=== PATIENT | male | born 1965 | race Two or more races ===

== ENCOUNTER → 2019-02-02 | Day surgery (SDC) | payer OTHER ==
[~2019-02-02] MED LIST: IV RINGERS,LACTATED 1000ML 1,000 ML IV SCH; LIDOCAINE 1% PF 2 ML VIAL. ONE; PROPOFOL 40 ML IV ONE; TERB250T11 PO
[2019-02-02 09:17] VITALS: BP 115/58
--- NOTE | 2019-02-02 21:50 | CONS ---
DATE OF CONSULTATION: 02/02/2019 REFERRING PHYSICIAN: Dr. David Vieira. REASON FOR CONSULTATION: Colorectal screening. HISTORY OF PRESENT ILLNESS: A 53-year-old gentleman with past medical history noncontributory is seen in further evaluation for screening colonoscopy. Bowel habits are regular without diarrhea or constipation. There has been no melena and/or hematochezia. Weight and appetite are stable. Family history is unrevealing for colon polyps or colon cancer. He has not undergone previous screening studies. PAST MEDICAL HISTORY: Noncontributory. ALLERGIES: None. MEDICATIONS: Include terbinafine 250 mg daily. SOCIAL HISTORY: Does not drink or smoke. FAMILY HISTORY: Noncontributory for colon cancer. REVIEW OF SYSTEMS: Per records. PHYSICAL EXAMINATION: VITAL SIGNS: Temperature is 97.0, pulse 60, respirations 20. HEENT: Normocephalic and atraumatic. Pupils and extraocular muscles are not tested. Sclerae anicteric. NECK: Supple. LUNGS: Clear. CARDIOVASCULAR: Reveals S1, S2 without S3, S4 or appreciable murmur. ABDOMEN: Reveals soft abdomen. Normoactive bowel sounds without appreciable hepatosplenomegaly. EXTREMITIES: No cyanosis, clubbing, or edema. IMPRESSION: Colorectal screening is warranted at this time. Risks and benefits of procedure including risk of hemorrhage and perforation were discussed with the patient and family and he is willing to proceed. I would like to thank Dr. Vieira for allowing us to consult and participate in this patient's care. WALE LACKEY MD DR: ANA PAULA/marlon JOB#: [id number] / [id number] DAVID Newton MD
--- NOTE | 2019-02-05 14:09 | PATHOLOGY ---
[facility] Accession Number: [id number] . 01 Material submitted: . CECAL POLYP . 01 Clinical history: . Screening . 02 Diagnosis: Colon biopsy, cecal polyp: - Tubular adenoma. (JPM:jose; 02/05/2019) QMS/02/05/2019 . 02 Comment: There is no high-grade dysplasia or evidence of malignancy. (JPM:jose; 02/05/2019) . 02 Electronically signed: . Matty Artis MD, Pathologist NPI- [id number] . 01 Gross description: . Received in formalin labeled "Stew, Henry, cecal polyp," is a single segment of suh soft tissue measuring 0.4 cm in maximum dimension. The specimen is entirely submitted in cassette A1. (TSD; 02/02/2019) TOB/TOB . 02 Pathologist provided ICD-10: D12.0 . 02 CPT . 784668 Specimen Comment: A courtesy copy of this report has been sent to Specimen Comment: [phone], . Specimen Comment: Report sent to / DR RIVERA Specimen Comment: A duplicate report has been generated due to demographic updates. Performed at: 01 [facility] [address], [place] [id number] MD Jovany Villeda MD Phone: [phone] Performed at: 02 [facility] [address] [place], [place] [id number] MD Matty Artis MD Phone: [phone]
== END | disposition home or self-care (01) ==
LOC: ENDOS 07:20
PROVIDERS: ATTEND Internal Medicine Gastroenterology
DX: Z12.11 Encounter for screening for malignant neoplasm of colon (principal); D12.0 Benign neoplasm of cecum; K64.0 First degree hemorrhoids; Z79.899 Other long term (current) drug therapy
CPT/HCPCS: 45380; 88305; J2704

== ENCOUNTER → 2020-02-06 | Day surgery (SDC) | payer OTHER ==
[~2020-02-06] MED LIST changes: +CRESTOR5 MG PO; +IV RINGERS,LACTATED 1000ML 1,000 ML IV ONE; -IV RINGERS,LACTATED 1000ML 1,000 ML IV SCH; -LIDOCAINE 1% PF 2 ML VIAL. ONE; +PANT40TA77 PO; +PROPOFOL 20 ML IV ONE; -PROPOFOL 40 ML IV ONE
[2020-02-06 08:36] VITALS: BP 134/75
== END | disposition home or self-care (01) ==
LOC: ENDOS 07:28
PROVIDERS: ATTEND Internal Medicine Gastroenterology
DX: R13.10 Dysphagia, unspecified (principal); K22.2 Esophageal obstruction; K56.699 Other intestinal obstruction unspecified as to partial versus complete obstruction; K29.50 Unspecified chronic gastritis without bleeding; K21.9 Gastro-esophageal reflux disease without esophagitis; E78.00 Pure hypercholesterolemia, unspecified; Z86.010 Personal history of colon polyps; Z80.3 Family history of malignant neoplasm of breast; Z83.3 Family history of diabetes mellitus; Z82.3 Family history of stroke; Z79.899 Other long term (current) drug therapy
CPT/HCPCS: 43235; 43450; J2704

== ENCOUNTER → 2020-09-25 | Outpatient (CLI) | payer OTHER ==
[2020-02-06 08:36] VITALS: BP 134/75
[~2020-09-25] MED LIST changes: -IV RINGERS,LACTATED 1000ML 1,000 ML IV ONE; -PROPOFOL 20 ML IV ONE; -TERB250T11 PO; +TERB250T84 PO
--- NOTE | 2020-09-25 16:14 | KCIC ---
EXAM: Lumbar spine, 5 views. HISTORY: Pain. COMPARISON: None. FINDINGS: 5 views of the lumbar spine are obtained. There is grade 1 anterolisthesis of L4 on L5. There is suspected pars defects at this level. There is minimal retrolisthesis of L4 and L5. There is multilevel endplate remodeling with disc space narrowing and osteophytosis at multiple levels. There is facet arthropathy predominantly at the lumbosacral junction. IMPRESSION: 1. Multilevel degenerative change involving the lumbar and lower thoracic spine, described above. 2. Grade 1 anterolisthesis with suspected pars defects at L5-S1. Electronically signed by: Rosalind Wynn MD (09/25/2020 4:11 PM) [id number]
== END ==
LOC: KCIC 15:35
PROVIDERS: ATTEND Family Medicine
DX: M47.815 Spondylosis without myelopathy or radiculopathy, thoracolumbar region (principal); M43.17 Spondylolisthesis, lumbosacral region; M79.604 Pain in right leg
CPT/HCPCS: 72110

== ENCOUNTER 2020-09-27 17:04 | Emergency (ER) | payer OTHER ==
[~2020-09-27] VITALS: Ht 165.1 cm; Wt 90.0 kg
[2020-09-27 21:12] VITALS: BP 143/84
== END 2020-09-27 21:30 | disposition left against medical advice (07) ==
LOC: ER 17:04
DX: M25.561 Pain in right knee (principal); Z53.21 Procedure and treatment not carried out due to patient leaving prior to being seen by health care provider

== ENCOUNTER → 2020-10-20 | Outpatient (CLI) | payer OTHER ==
[2020-09-27 21:12] VITALS: BP 143/84
--- NOTE | 2020-10-20 09:23 | RAD ---
EXAM: Right knee, 3 views. HISTORY: Acute pain. Popping. COMPARISON: None. FINDINGS: 3 views of the right knee are obtained. There is mild medial and patellofemoral compartment spurring. There is a tiny anterior right knee joint loose body. There is no fracture, dislocation or subluxation. There is no joint effusion. IMPRESSION: 1. Mild right knee osteoarthritis and tiny right knee joint loose body. 2. No acute osseous finding. Electronically signed by: Rosalind Wynn MD (10/20/2020 9:20 AM) [facility]
== END ==
LOC: RAD 08:47
PROVIDERS: ATTEND Nurse Practitioner Gerontology
DX: M17.11 Unilateral primary osteoarthritis, right knee (principal); M25.651 Stiffness of right hip, not elsewhere classified
CPT/HCPCS: 73562

== ENCOUNTER → 2020-10-27 | Outpatient (CLI) | payer OTHER ==
[2020-09-27 21:12] VITALS: BP 143/84
--- NOTE | 2020-10-28 09:09 | KCIC ---
EXAMINATION: LOWER EXT JOINT WO RT INDICATIONS: Right knee pain, medial meniscal tear. Infiltrate sharp pain one month ago. TECHNIQUE: Multiplanar multisequence MRI of the right knee was obtained without contrast. COMPARISON: Right knee radiograph on 02/08/2020 FINDINGS: MENISCI: There is a complete radial tear of the posterior root medial meniscus resulting in a 5 mm fluid-filled gap at the posterior and 4 mm extrusion of the meniscus at the posterior horn. There is globular abnormal T2 hyperintense signal throughout the rest of the medial meniscus. There is irregularity and increased signal at the posterior lateral meniscus without discrete tear. The lateral meniscus is otherwise intact. LIGAMENTS: The anterior and posterior cruciate ligaments are intact. There is fluid along course the medial collateral ligament, likely reactive to meniscal tear. Lateral collateral complex including popliteus tendon and iliotibial band are intact. EXTENSOR MECHANISM: There is edema in the medial aspect of Hoffa's fat pad, greatest inferiorly. Moderate deep infrapatellar bursitis. Patellar fat pad is unremarkable. Retinacula are intact. BONES AND CARTILAGE: There is a low signal subchondral insufficiency fracture of the medial tibial plateau with moderate surrounding marrow edema. There is fluid extending along the proximal medial tibia. Marrow signal is otherwise normal. There is focal full-thickness cartilage defect with a small amount of delamination medially at the medial patellar facet. Small underlying subchondral cyst. There is deep partial thickness cartilage loss along the trochlear groove with subchondral cysts. Superficial partial-thickness cartilage loss throughout the weightbearing medial compartment. Lateral compartment cartilage is intact. OTHER: There is a partial tear of the semimembranosus tendon distally. Fluid in the semimembranosus-tibial collateral ligament bursa and extending along the pes anserine tendons, likely related to semimembranosus tendon tear and subchondral fracture. Partial tear of the popliteus muscle distally. Remaining muscles and tendons are intact. No Killian cyst. Small joint effusion. IMPRESSION: 1. Subchondral insufficiency fracture of the medial tibial plateau. Extensive fluid/edema along the medial aspect of the knee and in the medial aspect of Hoffa's fat. 2. Complete radial tear of the posterior root medial meniscus with extrusion of the posterior horn and abnormal globular signal throughout the rest of the medial meniscus. 3. Mild irregularity and increased signal at the posterior root lateral meniscus may reflect fraying or synovitis. 4. Partial tear of the distal semimembranosus tendon. 5. Patellofemoral and medial compartment cartilage loss. Electronically signed by: Trinidad Monteiro MD (10/28/2020 9:06 AM) [id number]
== END ==
LOC: KCIC MRI 15:09
PROVIDERS: ATTEND Family Medicine
DX: S83.241A Other tear of medial meniscus, current injury, right knee, initial encounter (principal); M25.461 Effusion, right knee; X58.XXXA Exposure to other specified factors, initial encounter; Y93.89 Activity, other specified; Y92.89 Other specified places as the place of occurrence of the external cause; Y99.8 Other external cause status
CPT/HCPCS: 73721

== ENCOUNTER → 2020-11-27 | Outpatient (CLI) | payer OTHER ==
[~2020-11-27] MED LIST changes: +HYDR-2763 PO
== END ==
LOC: LAB 13:54
PROVIDERS: ATTEND Orthopaedic Surgery
DX: Z01.812 Encounter for preprocedural laboratory examination (principal); Z20.828 Contact with and (suspected) exposure to other viral communicable diseases
CPT/HCPCS: U0003

== ENCOUNTER 2020-12-01 09:52 | Day surgery (SDC) | payer OTHER ==
--- NOTE | 2020-11-30 16:13 | PDOC1 ---
History and Physical Date of Admission Date of Admission 12/01/2020 Identification/Chief Complaint Chief Complaint Right knee pain Source Source: Chart review, Patient History of Present Illness History of Present Illness This 55-year-old man works at a [employer], and had sudden onset of right knee pain at work when he was carrying a tray on 09/27/2020. 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 He said he felt a "crack" in his right knee which got worse after 5 to 10 minutes, and he had his pick him up from work, and he went home from work early that day due to the sudden onset knee pain, on September 27. He and his tried to go to a [facility] urgent care that day but it sounds like they gave up after some delay. He has since seen a Worker's Compensation doctor who told him there is arthritis and this is not work-related despite the sudden onset of knee pain which occurred at work. He has since had an MRI which shows a radial root tear of the medial meniscus, and nondisplaced fracture of the medial tibial plateau. Since September 27 he reports medial pain especially bad at nighttime trying to sleep, and sharp pains and mechanical symptoms with walking or prolonged standing. No swelling. He has increased pain and mechanical symptoms trying to go downstairs. I believe he said he also got a cortisone injection but without relief, (but I'm not 100% certain). Past Medical History Cardiovascular: Hyperlipidemia GI: GERD, Other (Esophageal stricture) Family History Family History: Cancer, Diabetes, Hypertension Social History Smoke: No ALCOHOL: occassional Current Medications Current Medications Current Medications Ondansetron HCl (Zofran) 4 mg PRN Q6HRS PRN IV NAUSEA/VOMITING; Start 12/01/20 at 07:00; Stop 12/02/20 at 06:59 Fentanyl Citrate (Fentanyl 2ml Vial) 25 mcg PRN Q5MIN PRN IV MILD PAIN 1-3; Start 12/01/20 at 07:00; Stop 12/02/20 at 06:59 Fentanyl Citrate (Fentanyl 2ml Vial) 50 mcg PRN Q5MIN PRN IV MODERATE TO SEVERE PAIN; Start 12/01/20 at 07:00; Stop 12/02/20 at 06:59 Morphine Sulfate (Morphine Sulfate) 1 mg PRN Q10MIN PRN IV SEVERE PAIN 7-10; Start 12/01/20 at 07:00; Stop 12/02/20 at 06:59 Ringer's Solution 1,000 ml @ 30 mls/hr Q24H IV ; Start 12/01/20 at 07:00; Stop 12/01/20 at 18:59 Lidocaine HCl (Xylocaine-Mpf 1% 2ml Vial) 2 ml PRN 1X PRN ID PRIOR TO IV START; Start 12/01/20 at 07:00; Stop 12/02/20 at 06:59 Hydromorphone HCl (Dilaudid) 0.5 mg PRN Q10MIN PRN IV SEV PAIN, Second choice; Start 12/01/20 at 07:00; Stop 12/02/20 at 06:59 Prochlorperazine Edisylate (Compazine) 5 mg PACU PRN PRN IV NAUSEA, MRX1; Start 12/01/20 at 07:00; Stop 12/02/20 at 06:59 Cefazolin Sodium/ Dextrose 50 ml @ 100 mls/hr 1X ONCE IV ; Start 12/01/20 at 06:00; Stop 12/01/20 at 06:29 Active Scripts Active Reported Crestor (Rosuvastatin Calcium) 5 Mg Tablet 20 Mg PO HS Pantoprazole Sodium (Pantoprazole Sodium) 40 Mg Tablet.dr 40 Mg PO DAILYAC Allergies Allergies: Coded Allergies: No Known Drug Allergies (Unverified , 02/06/20) ROS Review of System OPHTHALMOLOGY: Blurred vision none. Double vision denies. Change in vision none. ENT: Hearing loss none. Change in voice denies. Rhinorrhea none. CARDIOLOGY: Palpitations none. Shortness of breath denies. Chest pain none. CONSTITUTIONAL: Fever denies. Chills denies. Weight gain denies. Weakness none. weight loss denies. Fatigue none. GASTROENTEROLOGY: Diarrhea denies. Vomiting none. Dysphagia none. UROLOGY: Voiding normally yes. Hematuria none. MUSCULOSKELETAL: Chronic back or neck pain denies. Swelling of the feet, hands, ankles and /or legs denies. Joint pain Right Knee Pain. DERMATOLOGY: Rash denies. Lumps none. NEUROLOGY: Dizziness/lightheadedness denies. Double vision, temporary blindness denies. Tingling/numbness none. PSYCHOLOGY: Change in mood or personality denies. Memory loss none. ENDOCRINOLOGY: Obesity denies. Fatigue none. Weight loss none. HEMATOLOGY/LYMPH: Hepatitis denies. Enlarged lymph nodes denies. Physical Exam General: Alert, Cooperative HEENT: Atraumatic Lungs: Normal air movement Heart: RRR Abdomen: Soft Extremities: Other ( The RIGHT knee shows normal alignment, no masses. There is no effusion. There is tenderness at the medial joint line at the meniscus as well as at the medial tibial plateau bone. Driss's test is excruciatingly positive. There is medial joint line pain with deep flexion and especially with rotation of the tibia. The lateral joint line shows no tenderness. Range of motion is 0-135 degrees. There is trace patellofemoral crepitus. The knee is stable to varus and valgus stress without subluxation or laxity. The ACL feels intact on Terell testing. Muscle strength is normal (5/5) for quadriceps and hamstrings, and muscle tone is normal. The skin is normal with no scars, rashes, lesions or ulcers. Light touch sensation is intact. No edema and no varicosities. Dorsalis pedis pulse is intact and capillary refill is normal. ) Skin: No breakdown, No significant lesion Neuro: Normal speech, Sensation intact Psych/Mental Status: Mental status NL, Mood NL Images Images PATIENT: KEVIN HERNANDEZ ACCOUNT: [id number] : 1965 LOCATION: [facility] MRI AGE: 55 SEX: M EXAM STATUS: REG CLI ORD. PHYSICIAN: AMBER RIVERA MD REASON: RIGHT KNEE PAIN/MEDIAL MENISCAL TEAR PROCEDURE: LOWER EXT JOINT WO RT EXAMINATION: LOWER EXT JOINT WO RT INDICATIONS: Right knee pain, medial meniscal tear. Infiltrate sharp pain one month ago. TECHNIQUE: Multiplanar multisequence MRI of the right knee was obtained without contrast. COMPARISON: Right knee radiograph on 02/08/2020 FINDINGS: MENISCI: There is a complete radial tear of the posterior root medial meniscus resulting in a 5 mm fluid-filled gap at the posterior and 4 mm extrusion of the meniscus at the posterior horn. There is globular abnormal T2 hyperintense signal throughout the rest of the medial meniscus. There is irregularity and increased signal at the posterior lateral meniscus without discrete tear. The lateral meniscus is otherwise intact. LIGAMENTS: The anterior and posterior cruciate ligaments are intact. There is fluid along course the medial collateral ligament, likely reactive to meniscal tear. Lateral collateral complex including popliteus tendon and iliotibial band are intact. EXTENSOR MECHANISM: There is edema in the medial aspect of Hoffa's fat pad, greatest inferiorly. Moderate deep infrapatellar bursitis. Patellar fat pad is unremarkable. Retinacula are intact. BONES AND CARTILAGE: There is a low signal subchondral insufficiency fracture of the medial tibial plateau with moderate surrounding marrow edema. There is fluid extending along the proximal medial tibia. Marrow signal is otherwise normal. There is focal full-thickness cartilage defect with a small amount of delamination medially at the medial patellar facet. Small underlying subchondral cyst. There is deep partial thickness cartilage loss along the trochlear groove with subchondral cysts. Superficial partial-thickness cartilage loss throughout the weightbearing medial compartment. Lateral compartment cartilage is intact. OTHER: There is a partial tear of the semimembranosus tendon distally. Fluid in the semimembranosus-tibial collateral ligament bursa and extending along the pes anserine tendons, likely related to semimembranosus tendon tear and subchondral fracture. Partial tear of the popliteus muscle distally. Remaining muscles and tendons are intact. No Killian cyst. Small joint effusion. IMPRESSION: 1. Subchondral insufficiency fracture of the medial tibial plateau. Extensive fluid/edema along the medial aspect of the knee and in the medial aspect of Hoffa's fat. 2. Complete radial tear of the posterior root medial meniscus with extrusion of the posterior horn and abnormal globular signal throughout the rest of the medial meniscus. 3. Mild irregularity and increased signal at the posterior root lateral meniscus may reflect fraying or synovitis. 4. Partial tear of the distal semimembranosus tendon. 5. Patellofemoral and medial compartment cartilage loss. Electronically signed by: Chelsey Monteiro MD (10/28/2020 9:06 AM) [id number] DICTATED and SIGNED BY: CHELSEY MONTEIRO MD DATE: 10/28/20 09 VTE Prophylaxis Ordered VTE Prophylaxis Devices: Yes VTE Pharmacological Prophylaxi: Yes Assessment/Plan Assessment/Plan He has a radial root tear of the medial meniscus, and a nondisplaced fracture of the medial condyle of the right tibia. These two diagnoses often occur simultaneously, as the medial meniscus "hoop" suddenly tears and gives out at the root, and the femur suddenly lands on the tibia causing the fracture. I suspect the crack he felt at work was this combined event occurring, and he reports pain and mechanical symptoms since that event on September. I do believe this acute onset knee pain, meniscus tear and medial tibia fracture is all work-related. He has only minimal degenerative changes radiographically, Kellgren Bryant grade 1, and I do not recommend any treatment of his "knee osteoarthritis". I do recommend treatment of the medial meniscus tear, such as an arthroscopic meniscectomy, and treatment of the medial tibial fracture with limited weightbearing and activity modification until this fracture heals. In my experience these patients do well with arthroscopic meniscectomy, and then protected weightbearing with crutches or walker for a few weeks after the surgery while the fracture continues to heal. Often some physical therapy is necessary. I would expect him to be back to work 6 weeks after an arthroscopic procedure with no limitations. He has minimal osteoarthritis which does not re quire treatment, but the meniscus tear and the fracture due require treatment. It is my professional opinion based on his history, the exam findings and the imaging studies that these diagnoses are both are work-related. I spoke to him today about my recommendations for arthroscopy and other treatment, and he agrees with that plan Justifications for Admission Other Justification MAJOR QUINTANA MD Nov 30, 2020 16:13
[~2020-12-01] VITALS: Ht 179.1 cm; Wt 86.2 kg
[~2020-12-01 09:52] MED LIST changes: +DEXAMETHASONE SOD PHOS 4 MG/ML VIAL ONE; -HYDR-2763 PO; +HYDROmorphone 2 MG/ML VIAL IV PRN; +IV RINGERS,LACTATED 1000ML 1,000 ML IV SCH; +LIDOCAINE 1% PF 2 ML VIAL. ID PRN; +LIDOCAINE 2% PF 5 ML VIAL. ONE; +MORPHINE SULFATE 2 MG/ML VIAL. IV PRN; +ONDANSETRON PF 4 MG/2 ML VIAL. IV PRN; +ONDANSETRON PF 4 MG/2 ML VIAL. ONE; +PROCHLORPERAZINE 10 MG/2 ML VIAL. IV PRN; +PROPOFOL 10 MG/ML (20ML) VIAL. IV ONE; +fentaNYL PF VIAL 100 MCG/2 ML VIAL IV PRN; +fentaNYL PF VIAL 100 MCG/2 ML VIAL ONE
[2020-12-01] MEDS ORDERED: EPINEPHrine VIAL 30 MG/30 ML VIAL ONE (10:06)
[2020-12-01] MEDS ORDERED: BUPIVACAINE MPF 0.25% 30 ML VIAL. ONE ×2 (10:06)
[2020-12-01] MEDS ORDERED: SEVOFLURANE 61 TO 120 MINUTES. IH ONE (11:42)
[2020-12-01] MEDS: BUPIVACAINE-EPI 0.25%-1:200000 MPF 30 ML VIAL. INJ ONE ×2 (12:02→12:03)
--- NOTE | 2020-12-01 12:53 | PDOC4 ---
Operative Note Operative Note Date of Procedure: December 01, 2020 Preoperative Diagnosis: right knee medial meniscus tear Postoperative Diagnosis: complex tear medial meniscus, current injury, right knee, initial encounter, S83.231A Procedures Performed: right knee arthroscopy, surgical, with meniscectomy, MEDIAL, including meniscal shaving, including debridement/shaving of articular cartilage (chondroplasty) CPT 70851 Surgeon: Major Gold MD Truss Driver Helper: none Anesthesia: General Estimated Blood Loss: 25 mL Specimens: none Drains: none Complications: none Tourniquet time: 30 minutes at 300 mm Hg Indications for Procedure: The patient is a 55-year-old with right knee pain, unrelieved with nonoperative treatment. Exam and MRI are consistent with an unstable root medial meniscus tear with associated subchondral fracture. We talked about the risks and benefits of proceeding with an arthroscopic procedure. We talked about potential risks of ongoing pain, progressive arthritis, bleeding, infection, blood clots, or other potential surgical or anesthetic complications. All of the patient's questions about surgery were answered and they desired to proceed. Written consent was obtained. Description of Operation: The patient was identified in the preoperative holding area. The correct right knee was marked by me. The patient was taken to the operating room, where a general anesthetic was used. Preoperative antibiotics were given intravenously. A time-out procedure was performed. A tourniquet was placed on the upper thigh. Local anesthetic 20 mL of 0.25% bupivacaine was injected using sterile t echnique into the knee joint. The limb was prepared circumferentially with ChloraPrep solution and sterile waterproof arthroscopy drapes were applied. The limb was exsanguinated with an Esmarch bandage and the tourniquet was inflated. Lateral and medial arthroscopy portals were established. The medial meniscus showed a root tear avulsion with unrepairable complex configuration, and bleeding from this area consistent with relatively recent injury in August. The medial tibiofemoral joint showed chondromalacia Outerbridge Grade III with shallow partial thickness cartilage loss, but larger than 1 cm2, so a shaving chondroplasty was performed removing loose unstable fragments of articular cartilage.The intercondylar notch was free of loose bodies, and the ACL was intact. The lateral tibiofemoral joint showed a normal lateral meniscus, so no lateral meniscectomy was required.The lateral articular surfaces showed chondromalacia Outerbridge grade I, so no chondroplasty was required. The patellofemoral joint showed chondromalacia Outerbridge grade I, so no chondroplasty was required. The suprapatellar pouch, medial and lateral gutters were free of loose bodies. Copious irrigation was used to drain all meniscal and chondral fragments, and the knee was drained of fluid. The portals were closed with #3-0 Prolene interrupted sutures. Additional local anesthetic, 30 mL of 0.25% bupivacaine with epinephrine was injected. A bulky sterile dressing was applied and the tourniquet was released. Needle and sponge counts were correct and there were no apparent complications. MAJOR GOLD MD Dec 01, 2020 12:53
[2020-12-01] MEDS ORDERED: HYDR-2763 PO (13:13)
[2020-12-01] MEDS ORDERED: HYDROcodone/APAP 7.5/325MG 1 TAB TABLET PO ONE (13:15)
[2020-12-01 13:30] VITALS: BP 143/77
== END 2020-12-01 14:08 | disposition home or self-care (01) ==
LOC: SURG 09:52
PROVIDERS: ATTEND Orthopaedic Surgery
DX: S83.231A Complex tear of medial meniscus, current injury, right knee, initial encounter (principal); M94.261 Chondromalacia, right knee; E78.00 Pure hypercholesterolemia, unspecified; K21.9 Gastro-esophageal reflux disease without esophagitis; M19.90 Unspecified osteoarthritis, unspecified site; G47.30 Sleep apnea, unspecified; Z79.899 Other long term (current) drug therapy; Z72.89 Other problems related to lifestyle; Z98.890 Other specified postprocedural states; Z88.8 Allergy status to other drugs, medicaments and biological substances; X58.XXXA Exposure to other specified factors, initial encounter; Y93.89 Activity, other specified; Y92.89 Other specified places as the place of occurrence of the external cause; Y99.8 Other external cause status
CPT/HCPCS: 29881; J0171; J0690; J1100; J2405; J2704; J3010; J3490

== ENCOUNTER → 2021-10-23 | Outpatient (CLI) | payer OTHER ==
[~2021-10-23] MED LIST changes: -DEXAMETHASONE SOD PHOS 4 MG/ML VIAL ONE; +HYDR-2763 PO; -HYDROmorphone 2 MG/ML VIAL IV PRN; -IV RINGERS,LACTATED 1000ML 1,000 ML IV SCH; -LIDOCAINE 1% PF 2 ML VIAL. ID PRN; -LIDOCAINE 2% PF 5 ML VIAL. ONE; -MORPHINE SULFATE 2 MG/ML VIAL. IV PRN; -ONDANSETRON PF 4 MG/2 ML VIAL. IV PRN; -ONDANSETRON PF 4 MG/2 ML VIAL. ONE; -PROCHLORPERAZINE 10 MG/2 ML VIAL. IV PRN; -PROPOFOL 10 MG/ML (20ML) VIAL. IV ONE; +TERB250T72 PO; -TERB250T84 PO; -fentaNYL PF VIAL 100 MCG/2 ML VIAL IV PRN; -fentaNYL PF VIAL 100 MCG/2 ML VIAL ONE
[2021-10-23 11:10] LABS: BASO % 0 % (0-3); EOS # 0.2 x10^3/uL (0.0-0.7); EOS % 3 % (0-3); HEMATOCRIT 43.4 % (39.0-53.0); HEMOGLOBIN 14.8 g/dL (13.0-17.5); LYMPH # 2.1 x10^3/uL (1.0-4.8); LYMPH % 38 % (24-48); MEAN CORPUSCULAR HEMOGLOBIN 28 pg (25-35); MEAN CORPUSCULAR HGB CONC 34 g/dL (31-37); MEAN CORPUSCULAR VOLUME 82 fL (79-100); MONO # 0.5 x10^3/uL (0.0-1.1); MONO % 8 % (0-9); NEUT # 2.7 x10^3/uL (1.8-7.7); NEUT % 50 % (31-73); PLATELET COUNT 196 x10^3/uL (140-400); RED CELL DISTRIBUTION WIDTH 14.5 % (11.5-14.5); WHITE BLOOD COUNT 5.4 x10^3/uL (4.0-11.0)
[2021-10-23 11:18] LABS: ALBUMIN/GLOBULIN RATIO 1.1 (1.0-1.7); CALCIUM 8.3 mg/dL (8.5-10.1); CREATININE 0.8 mg/dL (0.7-1.3); GFR 99.6; POTASSIUM 3.9 mmol/L (3.5-5.1); TOTAL BILIRUBIN 1.1 mg/dL (0.2-1.0); TOTAL PROTEIN 7.7 g/dL (6.4-8.2)
[2021-10-23 11:29] LABS: PROTHROMBIN TIME PATIENT 12.8 SEC (11.7-14.0)
--- NOTE | 2021-10-23 16:10 | RAD ---
EXAM: PA and Lateral Views of the Chest DATE: 10/23/2021 11:02 AM INDICATION: Reason: PRE-OP RIGHT KNEE ARTHROSCOPY BECAUSE OF PAIN. / Spl. Instructions: / History: COMPARISON: No Prior FINDINGS: The heart is not enlarged. Mediastinal and hilar contours are normal. No focal parenchymal airspace opacity. Calcified granuloma right lower lung. No pleural effusion or pneumothorax. IMPRESSION: 1. No radiographic evidence for acute cardiopulmonary process. Electronically signed by: Raymond Kennedy MD (10/23/2021 4:07 PM) [id number]
== END ==
LOC: LAB 10:36
PROVIDERS: ATTEND Orthopaedic Surgery Sports Medicine
DX: Z01.818 Encounter for other preprocedural examination (principal)
CPT/HCPCS: 36415; 71046; 80053; 85025; 85610; 85651; 85730